=== PATIENT | female | born 1935 | race Caucasian/White ===

== ENCOUNTER 2016-12-12 08:23 | Emergency (ER) | payer MEDICARE, OTHER ==
[2016-12-12] MEDS ORDERED: Acetaminophen/HYDROcodone 325-5 MG Tab PO ONE (10:48)
[2016-12-12 11:31] VITALS: BP 133/61
--- NOTE | 2016-12-13 11:42 | CR ---
INDICATION: Fall, pain. LEFT SHOULDER, COMPLETE: Three views of the left shoulder revealed a comminuted fracture of the proximal shaft through the surgical neck area of the humerus with medial offset of the distal fracture fragment of approximately 1 cm and medial angulation of mild to moderate degree at the fracture site. The fracture appears to have spared the joint surface. Joint effusion is suggested with some widening of the glenohumeral joint space. No other acute bone or joint abnormality was suggested. IMPRESSION: Comminuted fracture of the proximal humerus with moderate deformity. MTDD
--- NOTE | 2016-12-13 15:18 | ER ---
DATE SEEN: 12/12/2016 TIME SEEN: The patient was seen at 0945 hours. HISTORY: This 81-year-old, slipped and fell, and in fact she went out to measure the rain this morning and she slipped on the back and fell onto her left shoulder, has pain in left shoulder. No history of loss of consciousness. Did not hit her head. No history of seizure disorder. PAST MEDICAL HISTORY: Significant for diabetes, hypertension, coronary artery disease, 3-vessel CABG in 2003, no history of TIA. She is status post appendectomy, hysterectomy, and cholecystectomy. She has a who has had a stroke, it is difficult to get around so she is here with her friend. Significant dyslipidemia. MEDICATIONS: 1. Metformin 1000 mg b.i.d. 2. Glyburide 5 mg daily. 3. Atorvastatin 20 mg daily. 4. Carvedilol 6.25 mg daily. ALLERGIES: None. REVIEW OF SYSTEMS: Negative except as noted above. PHYSICAL EXAMINATION: VITAL SIGNS: Blood pressure 129/81, heart rate 59 and regular, respiratory rate 18, oxygen saturation 98%, and temperature is 36.3 degrees centigrade, 69.4 kg, BMI 28.28 kg/m2. CONSTITUTIONAL: The patient is very pleasant, well dressed woman who has mild discomfort, but does not complain of pain presently. HEENT: PERRLA intact. Pharynx without abnormality. NECK: Supple. No bruits in neck. LUNGS: Clear to auscultation without rales, rhonchi, or wheezes. No chest wall pain. HEART: S1, S2. No irregular rate and rhythm. ABDOMEN: Soft. No hepatosplenomegaly, guarding, or abdominal discomfort. EXTREMITIES: Without edema. NEURO: Deep tendon reflexes upper and lower extremities symmetrical and 1+. Left shoulder, no crepitus with gentle motion of the shoulder, but she has mild discomfort. She did not keep me from moving her arm, I had moved it 15 degrees, and it caused discomfort. There is mild swelling. Deltoid nerve sensory intact (C5) on palpation. No compromise in pronation, supination, or flexion or extension of the wrist or compromised hand sensation or radial and ulnar pulses. X-ray reveals an oblique surgical neck, partially displaced, impacted left humerus. PLAN: 1. The patient had a sling and swath placed, shoulder immobilizer. She will have a tablet of Vicodin. 2. She had a prescription filled for Vicodin 16 tablets 1 q.4-6 hours p.r.n. pain. 3. Use ice packs. 4. We will call to her clinic to make arrangements for orthopedic followup. No lifting with left arm. DIAGNOSES: 1. Left impacted angulated surgical neck fracture of the humerus. 2. Hypertension. 3. Diabetes. 4. Coronary artery disease. 5. Three-vessel CABG. 6. Dyslipidemia. 7. Status post appendectomy, hysterectomy, and cholecystectomy. /[id number] PALOMA/ANNEMARIE
== END 2016-12-12 11:02 | disposition home or self-care (01) ==
LOC: FB.ED 08:23
DX: S42.212A Unspecified displaced fracture of surgical neck of left humerus, initial encounter for closed fracture (principal); I10 Essential (primary) hypertension; E11.9 Type 2 diabetes mellitus without complications; I25.10 Atherosclerotic heart disease of native coronary artery without angina pectoris; E78.5 Hyperlipidemia, unspecified; Z95.1 Presence of aortocoronary bypass graft; Z90.49 Acquired absence of other specified parts of digestive tract; Z90.710 Acquired absence of both cervix and uterus; W19.XXXA Unspecified fall, initial encounter
CPT/HCPCS: 73030; 99283; A9270

== ENCOUNTER 2017-01-01 01:49 | Emergency (ER) | payer MEDICARE, OTHER ==
[2017-01-01] MEDS ORDERED: Nitroglycerin 0.4 MG Tab.SL SL ONE ×2 (01:55→02:25)
[2017-01-01] MEDS ORDERED: Sodium Chloride 0.9% 1,000 ML IV SCH (02:00)
--- NOTE | 2017-01-01 02:15 | EDM.PDOC ---
ED HPI GENERAL MEDICAL PROBLEM - General Stated Complaint: CHEST PAIN Time Seen by Provider: 01/01/17 01:49 Source of Information: Reports: Patient History Limitations: Reports: No Limitations - History of Present Illness INITIAL COMMENTS - FREE TEXT/NARRATIVE: c/o CP onset CP [employer], awoke from sleep, lower SSCP, SBP 60 by EMS, then 88, then 105, BP 112/69 with HR 71 and PO 100% here, after NTG SL x 1 here BP 99/59 EKG by EMS with dec'd ST chest leads with greatest 2.5 mm in V2, III and F with nl ST, dec'd ST I, II, AVL up to 1.5 mm in II after NTG x [address] depression on EKG (1.5 mm at V2 and II) and CP has resolved, pt now with pain in her back only h/o CABGx3 12y ago, states no CV since, did see cardiology in f/u once 3w after CABG but not since L humerus fx 3w ago has had sob x 3-4d, been sleeping in a chair d/t her humeral fx, did sleep in her bed last night widened mediastinum noted on portable CxR altho it was rotated, some pul edema noted as well with inc'd d-dimer and back pain, a chest CTA was ordered with no evidence of dissection she became pain free after NTG x 2, did show bifascular block Right Middle Chest Pain Score (Numeric/FACES): 9 - Related Data Allergies Allergy/AdvReac Type Severity Reaction Status Date / Time No Known Allergies Allergy Verified 01/01/17 04:38 Home Meds: Home Meds Carvedilol [Coreg] 6.25 mg PO DAILY 04/18/16 [History] atorvaSTATin [Lipitor] 20 mg PO DAILY 04/18/16 [History] glyBURIDE [Glyburide] 5 mg PO DAILY 04/18/16 [History] metFORMIN HCl [Metformin HCl] 1,000 mg PO BID 04/18/16 [History] Hydrocodone/Acetaminophen [Hydrocodon-Acetaminophen 5-325] 1 each PO Q4HR PRN # 16 tablet 12/12/16 [Rx] Aspirin [Ecotrin] 325 mg PO DAILY 01/01/17 [History] Cranberry 400 mg PO DAILY 01/01/17 [History] Ergocalciferol (Vitamin D2) [Vitamin D2] 2,000 unit PO DAILY 01/01/17 [History] Lutein/Minerals/Vit A,C & E [Ocuvite] 1 tab PO DAILY 01/01/17 [History] Past Medical History Cardiovascular History: Reports: Bypass, High Cholesterol, Hypertension, [place] Respiratory History: Reports: Asthma Gastrointestinal History: Reports: Cholelithiasis 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: Endocrine/Metabolic History: Reports: Diabetes, Type II Other Endocrine/Metabolic History: borderline diabetic, is diet controlled - Infectious Disease History Infectious Disease History: Reports: Chicken Pox, Measles, Mononucleosis, Mumps , Shingles - Past Surgical History HEENT Surgical History: Reports: Cataract Surgery Other HEENT Surgeries/Procedures: bilat cataract Cardiovascular Surgical History: Reports: Coronary Artery Bypass, Other (See Below) Other Cardiovascular Surgeries/Procedures: 3 vessel bypass GI Surgical History: Reports: Appendectomy, Cholecystectomy, Colonoscopy, EGD Social & Family History - Family History Family Medical History: Noncontributory - Tobacco Use Smoking Status *Q: Former Smoker Used Tobacco, but Quit: Yes Month Tobacco Last Used: 1966 Second Hand Smoke Exposure: No - Caffeine Use Caffeine Use: Reports: Coffee, Soda - Recreational Drug Use Recreational Drug Use: No ED ROS GENERAL - Review of Systems Review Of Systems: See Below Constitutional: Reports: No Symptoms HEENT: Reports: No Symptoms Respiratory: Reports: No Symptoms Cardiovascular: Reports: Chest Pain Endocrine: Reports: No Symptoms GI/Abdominal: Reports: No Symptoms : Reports: No Symptoms Musculoskeletal: Reports: Back Pain Skin: Reports: No Symptoms Neurological: Reports: No Symptoms Psychiatric: Reports: No Symptoms Hematologic/Lymphatic: Reports: No Symptoms Immunologic: Reports: No Symptoms ED EXAM, GENERAL - Physical Exam Exam: See Below Exam Limited By: No Limitations General Appearance: Alert, WD/WN, Mild Distress Ears: Normal External Exam, Hearing Grossly Normal Nose: Normal Inspection, Normal Mucosa, No Blood Throat/Mouth: Normal Inspection, Normal Lips, Normal Voice, No Airway Compromise Head: Atraumatic, Normocephalic Neck: Normal Inspection, Supple, Non-Tender Respiratory/Chest: No Respiratory Distress, Lungs Clear, Normal Breath Sounds, No Accessory Muscle Use, Chest Non-Tender, Other (no epigastric or sternal or rib tender) Cardiovascular: Regular Rate, Rhythm, No Edema, No Gallop, No JVD, No Rub, Other (2/6 CORDELL at LSB) Peripheral Pulses: 0: Carotid (R) GI/Abdominal: Soft, Non-Tender, No Organomegaly, No Distention, No Mass Back Exam: Normal Inspection, Full Range of Motion, NT Extremities: No Pedal Edema, Other (dec'd turgor UE b/l, no tenting, old ecchymosis LUE, holding LUE straight at side) Neurological: Alert, Oriented, CN II-XII Intact, Normal Cognition, No Motor/ Sensory Deficits Psychiatric: Normal Affect, Normal Mood Skin Exam: Warm, Dry, Intact, Normal Color, No Rash Lymphatic: No Adenopathy Course - Vital Signs Last Recorded V/S: Last Vital Signs Temp 36.3 C 01/01/17 04:04 Pulse 89 01/01/17 04:04 Resp 18 01/01/17 04:04 BP 105/59 L 01/01/17 04:04 Pulse Ox 100 01/01/17 04:12 - Orders/Labs/Meds Orders: Active Orders 24 hr Category Date Time Status Chest 1V Frontal [CR] Stat Exams 01/01/17 01:59 Taken Chest w Cont [CT] Stat Exams 01/01/17 03:06 Taken UA W/MICROSCOPIC [URIN] Stat Lab 01/01/17 01:59 Uncollected Sodium Chloride 0.9% [Normal Saline] 1,000 ml Med 01/01/17 02:00 Active IV ASDIRECTED Medication Orders Sodium Chloride (Normal Saline) 1,000 mls @ 999 mls/hr IV ASDIRECTED WILTON Last Admin: 01/01/17 02:00 Dose: 999 mls/hr Labs: Laboratory Tests 01/01/17 01/01/17 01/01/17 Range/Units 02:40 02:40 02:40 WBC 9.7 (4.5-12.0) X10-3/uL RBC 3.46 (3.23-5.20) x10(6)uL Hgb 10.4 L (11.5-15.5) g/dL Hct 32.3 (30.0-51.3) % MCV 93.4 (80-96) fL MCH 30.2 (27.7-33.6) pg MCHC 32.3 (32.2-35.4) g/dL RDW 13.6 (11.5-15.5) % Plt Count 336 (125-369) X10(3)uL MPV 8.4 (7.4-10.4) fL Neut % (Auto) 75.1 (46-82) % Lymph % (Auto) 14.9 (13-37) % [place] % (Auto) 6.0 (4-12) % Eos % (Auto) 4 (1.0-5.0) % Baso % (Auto) 1 (0-2) % Neut # (Auto) 7.4 (1.6-8.3) # Lymph # (Auto) 1.4 (0.6-5.0) # [place] # (Auto) 0.6 (0.0-1.3) # Eos # (Auto) 0.3 (0.0-0.8) # Baso # (Auto) 0.0 (0.0-0.2) # PT 10.9 (8.7-11.1) INR 1.08 (0.89-1.13) D-Dimer, Quantitative 2670 H (100-400) ng/mL Sodium (135-145) mmol/L Potassium (3.5-5.3) mmol/L Chloride (100-110) mmol/L Carbon Dioxide (23-29) mmol/L BUN (8-23) mg/dL Creatinine (0.6-1.3) mg/dL Est Cr Clr Drug Dosing mL/min Estimated GFR (MDRD) (>60) BUN/Creatinine Ratio (9-20) Glucose (80-116) mg/dL Calcium (8.6-10.2) mg/dL Total Bilirubin (0.1-1.3) mg/dL AST (5-27) IU/L ALT (14-26) IU/L Alkaline Phosphatase (56-112) IU/L Troponin I (0.02-0.06) NG/ML C-Reactive Protein (0.0-1.0) mg/dL NT-Pro-B Natriuret Pep (5-450) pg/mL Total Protein (6.0-8.0) g/dL Albumin (3.2-4.6) g/dL Globulin g/dL Albumin/Globulin Ratio 01/01/17 01/01/17 Range/Units 02:40 02:40 WBC (4.5-12.0) X10-3/uL RBC (3.23-5.20) x10(6)uL Hgb (11.5-15.5) g/dL Hct (30.0-51.3) % MCV (80-96) fL MCH (27.7-33.6) pg MCHC (32.2-35.4) g/dL RDW (11.5-15.5) % Plt Count (125-369) X10(3)uL MPV (7.4-10.4) fL Neut % (Auto) (46-82) % Lymph % (Auto) (13-37) % [place] % (Auto) (4-12) % Eos % (Auto) (1.0-5.0) % Baso % (Auto) (0-2) % Neut # (Auto) (1.6-8.3) # Lymph # (Auto) (0.6-5.0) # [place] # (Auto) (0.0-1.3) # Eos # (Auto) (0.0-0.8) # Baso # (Auto) (0.0-0.2) # PT (8.7-11.1) INR (0.89-1.13) D-Dimer, Quantitative (100-400) ng/mL Sodium 136 (135-145) mmol/L Potassium 3.8 (3.5-5.3) mmol/L Chloride 100 (100-110) mmol/L Carbon Dioxide 24 (23-29) mmol/L BUN 25 H (8-23) mg/dL Creatinine 1.3 (0.6-1.3) mg/dL Est Cr Clr Drug Dosing 26.84 mL/min Estimated GFR (MDRD) 39 L (>60) BUN/Creatinine Ratio 19.2 (9-20) Glucose 218 H (80-116) mg/dL Calcium 8.7 (8.6-10.2) mg/dL Total Bilirubin 0.9 (0.1-1.3) mg/dL AST 27 D (5-27) IU/L ALT 15 D (14-26) IU/L Alkaline Phosphatase 94 (56-112) IU/L Troponin I 0.77 H* (0.02-0.06) NG/ML C-Reactive Protein < 0.5 (0.0-1.0) mg/dL NT-Pro-B Natriuret Pep 1889 H (5-450) pg/mL Total Protein 6.5 (6.0-8.0) g/dL Albumin 3.2 (3.2-4.6) g/dL Globulin 3.3 g/dL Albumin/Globulin Ratio 1.0 Meds: Medications Generic Name Dose Route Start Last Admin Trade Name Freq PRN Reason Stop Dose Admin Sodium Chloride 1,000 mls @ 999 mls/hr 01/01/17 02:00 01/01/17 02:00 Normal Saline IV 999 mls/hr ASDIRECTED WILTON Administration Discontinued Medications Generic Name Dose Route Start Last Admin Trade Name Freq PRN Reason Stop Dose Admin Aspirin 324 mg 01/01/17 04:19 01/01/17 01:51 Aspirin PO 01/01/17 04:20 324 mg ONETIME ONE Administration Iopamidol 75 ml 01/01/17 03:20 01/01/17 03:51 Isovue-370 (76%) IV 01/01/17 03:21 60 ml ASDIRECTED ONE Administration Nitroglycerin 0.4 mg 01/01/17 01:55 01/01/17 02:00 Nitrostat SL 01/01/17 01:56 0.4 mg ONETIME ONE Administration Nitroglycerin 0.4 mg 01/01/17 02:25 01/01/17 02:25 Nitrostat SL 01/01/17 02:26 0.4 mg ONETIME ONE Administration Departure - Departure Time of Disposition: 05:45 Disposition: DC/Tfer to Acute Hospital 02 Reason for Transfer *Q: Other Condition: Good Clinical Impression: Acute coronary syndrome, CHF exacerbation, Elevated d-dimer, Elevated brain natriuretic peptide (BNP) level, Pulmonary edema cardiac cause, Mild dehydration , Bifascicular block, ST segment depression, Elevated troponin, Acute on chronic renal failure, Left humeral fracture Referrals: Yony Santoro MD [Primary Care Provider] - - My Orders Last 24 Hours: My Active Orders 01/01/17 01:59 Chest 1V Frontal [CR] Stat UA W/MICROSCOPIC [URIN] Stat 01/01/17 02:00 Sodium Chloride 0.9% [Normal Saline] 1,000 ml IV ASDIRECTED 01/01/17 03:06 Chest w Cont [CT] Stat - Assessment/Plan Last 24 Hours: My Active Orders 01/01/17 01:59 Chest 1V Frontal [CR] Stat UA W/MICROSCOPIC [URIN] Stat 01/01/17 02:00 Sodium Chloride 0.9% [Normal Saline] 1,000 ml IV ASDIRECTED 01/01/17 03:06 Chest w Cont [CT] Stat
[2017-01-01] MEDS ORDERED: Iopamidol 755 Mg/ML 75 ML Bottle IV ONE (03:20)
[2017-01-01] MEDS ORDERED: Aspirin 81 MG Tab.Chew PO ONE (04:19)
[2017-01-01] MEDS ORDERED: Heparin Sodium 5,000 Units/ML Vial IVPUSH ONE (05:36)
[2017-01-01] MEDS ORDERED: Clopidogrel 75 MG Tab PO ONE (05:36)
[2017-01-01] MEDS ORDERED: Heparin Sodium/D5W 25,000 UNITS/500 ML BAG IV SCH (05:45)
[2017-01-01 08:18] VITALS: BP 99/58
--- NOTE | 2017-01-03 12:08 | CR ---
INDICATION: Chest pain. CHEST: An AP upright view of the chest 01/01/2017, compared with 04/18/2016 and 04/12/2009, revealed the heart to be enlarged similar to the last examination. Pulmonary vasculature appears slightly prominent with prominent interstitial markings, raising question of a mild degree of CHF and interstitial lung edema. Minimal bilateral pleural effusions are difficult to exclude with minimally blunted costophrenic angle seen. Evidence of previous median sternotomy is again noted. Overlying EKG leads are noted. It is difficult to entirely exclude minimal patchy pneumonia in the mid to lower lung field on the right and left lung base medially. IMPRESSION: 1. ASHD, cardiomegaly, possible minimal or early CHF with mild interstitial lung edema - correlate clinically. 2. Cannot exclude the possibility of patchy pneumonia superimposed on areas of heavy markings - interstitial changes in the mid to lower lung field on the right and medial left lung base. 3. Somewhat hyperaerated appearing lung, slightly flattened diaphragm leaves, raising question of COPD - correlate clinically. MTDD
== END 2017-01-01 08:35 ==
LOC: FB.ED 01:49
DX: I24.9 Acute ischemic heart disease, unspecified (principal); I45.2 Bifascicular block; I13.0 Hypertensive heart and chronic kidney disease with heart failure and stage 1 through stage 4 chronic kidney disease, or unspecified chronic kidney disease; E11.22 Type 2 diabetes mellitus with diabetic chronic kidney disease; N18.9 Chronic kidney disease, unspecified; I50.9 Heart failure, unspecified; S42.212A Unspecified displaced fracture of surgical neck of left humerus, initial encounter for closed fracture; E86.0 Dehydration; R79.89 Other specified abnormal findings of blood chemistry; R94.31 Abnormal electrocardiogram [ECG] [EKG]; E78.00 Pure hypercholesterolemia, unspecified; Z95.1 Presence of aortocoronary bypass graft; Z79.82 Long term (current) use of aspirin; Z79.84 Long term (current) use of oral hypoglycemic drugs; Z79.899 Other long term (current) drug therapy; X58.XXXA Exposure to other specified factors, initial encounter
CPT/HCPCS: 36415; 71010; 71260; 80053; 81001; 83880; 84484; 85025; 85379; 85610; 86140; 87086; 87088; 87186; 93005; 96360; 99285; A9270; J1644; J7040; Q9967

== ENCOUNTER 2017-01-09 15:01 | Emergency (ER) | payer MEDICARE, OTHER ==
[2017-01-09 15:42] VITALS: BP 119/73
--- NOTE | 2017-01-09 16:38 | EDM.PDOC ---
ED HPI GENERAL MEDICAL PROBLEM - General Chief Complaint: General Stated Complaint: FLUID BUILD UP Time Seen by Provider: 01/09/17 15:25 Source of Information: Reports: Patient History Limitations: Reports: No Limitations - History of Present Illness INITIAL COMMENTS - FREE TEXT/NARRATIVE: c/o inc'd ankle swelling pt in ED 01/01 with CP, went to [place] with EKG changes in anterior/inferior distribution with troponin 0.77 previously with small [place] and CABG x 3 12y ago, told she now had a blockage of one of the 3 grafts but it was not safe to do angioplasty pt d/c'ed home 6d ago, on furosemide 20 mg daily as a new med, wt has dec'd 169 lbs to 152 lbs in ED now pt c/o inc'd ankle swell in past 24h, had not previously had ankle swell, feels sob, no cough, PO 100% on RA, no dyspnea and lungs CTA here today pt with BNP 1889 8d ago, now over 33k trop 0.77 8d ago, now 2.13 will d/w [place] cardiology Dr Cadena who was senior vice president and chief information officer and had seen pt in [place], troponin 112 there, then peaked 123, then dec'd 76 and 36 so trop 2.13 today is downward trend Dr Cadena recommended starting the lisinopril will continue the current dose of furosemide as she has a clear downward trend in wt and has nl BUN/creat 18/1.2 (was 25/1.3 8d ago) pt has apt with Dr Payton in 2d and Dr Cadena in 1w - Related Data Allergies Allergy/AdvReac Type Severity Reaction Status Date / Time No Known Allergies Allergy Verified 01/09/17 15:17 Home Meds: Home Meds Carvedilol [Coreg] 6.25 mg PO DAILY 04/18/16 [History] glyBURIDE [Glyburide] 5 mg PO BID 04/18/16 [History] metFORMIN HCl [Metformin HCl] 1,000 mg PO BID 04/18/16 [History] Aspirin [Ecotrin] 325 mg PO DAILY 01/01/17 [History] Clopidogrel [Plavix] 75 mg PO DAILY 01/09/17 [History] Furosemide 20 mg PO DAILY 01/09/17 [History] Lisinopril 2.5 mg PO DAILY 01/09/17 [History] atorvaSTATin [Lipitor] 80 mg PO BEDTIME 01/09/17 [History] Past Medical History Cardiovascular History: Reports: Bypass, High Cholesterol, Hypertension, [place], Stents Respiratory History: Reports: Asthma Gastrointestinal History: Reports: Cholelithiasis Genitourinary History: Reports: Other (See Below) Other Genitourinary History: has trouible getting things going 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: Musculoskeletal History: Reports: Other (See Below) Other Musculoskeletal History: non displaced fracture L upper arm Endocrine/Metabolic History: Reports: Diabetes, Type II Other Endocrine/Metabolic History: borderline diabetic, is diet controlled - Infectious Disease History Infectious Disease History: Reports: Chicken Pox, Measles, Mononucleosis, Mumps , Shingles - Past Surgical History HEENT Surgical History: Reports: Cataract Surgery Other HEENT Surgeries/Procedures: bilat cataract Cardiovascular Surgical History: Reports: Coronary Artery Bypass, Other (See Below) Other Cardiovascular Surgeries/Procedures: 3 vessel bypass GI Surgical History: Reports: Appendectomy, Cholecystectomy, Colonoscopy, EGD Female Surgical History: Reports: None Social & Family History - Family History Family Medical History: Noncontributory - Tobacco Use Smoking Status *Q: Never Smoker Used Tobacco, but Quit: Yes Month Tobacco Last Used: 1966 Second Hand Smoke Exposure: No - Caffeine Use Caffeine Use: Reports: None Other Caffeine Use: 1 cup a day - Recreational Drug Use Recreational Drug Use: No ED ROS GENERAL - Review of Systems Review Of Systems: See Below Constitutional: Reports: No Symptoms HEENT: Reports: No Symptoms Respiratory: Reports: Shortness of Breath Cardiovascular: Reports: No Symptoms, Other (ankle swell). Denies: Chest Pain Endocrine: Reports: No Symptoms GI/Abdominal: Reports: No Symptoms : Reports: No Symptoms Musculoskeletal: Reports: No Symptoms Skin: Reports: No Symptoms Neurological: Reports: No Symptoms Psychiatric: Reports: No Symptoms Hematologic/Lymphatic: Reports: No Symptoms Immunologic: Reports: No Symptoms ED EXAM, GENERAL - Physical Exam Exam: See Below Exam Limited By: No Limitations General Appearance: Alert, WD/WN, No Apparent Distress, Other (pleasant, nonill , sitting in chair, moves easily) Nose: Normal Inspection, Normal Mucosa, No Blood Throat/Mouth: Normal Inspection, Normal Voice, No Airway Compromise Head: Atraumatic, Normocephalic Neck: Normal Inspection, Supple, Non-Tender, Full Range of Motion Respiratory/Chest: No Respiratory Distress, Lungs Clear, Normal Breath Sounds, No Accessory Muscle Use, Chest Non-Tender, Other (no cough, no dyspnea, talks 10 -word sentences) Cardiovascular: Regular Rate, Rhythm, No Gallop, No JVD, No Rub, Other (2/6 CORDELL at LSB, 2+ edema to knees b/l, trace edema of thighs b/l, nl turgor UE b/l) Back Exam: Normal Inspection, Full Range of Motion, NT Extremities: Normal Inspection, Normal Range of Motion, Non-Tender, Normal Capillary Refill Neurological: Alert, Oriented, CN II-XII Intact, Normal Cognition, No Motor/ Sensory Deficits Psychiatric: Normal Affect, Normal Mood Skin Exam: Warm, Dry, Intact, Normal Color, No Rash Lymphatic: No Adenopathy Course - Vital Signs Last Recorded V/S: Last Vital Signs Temp 36.7 C 01/09/17 15:05 Pulse 82 01/09/17 15:05 Resp 16 01/09/17 15:05 BP 119/73 01/09/17 15:05 Pulse Ox 100 01/09/17 15:05 - Orders/Labs/Meds Orders: Active Orders 24 hr Category Date Time Status EKG Documentation Completion [RC] ASDIRECTED Care 01/09/17 16:38 Active BASIC METABOLIC PANEL,BMP [CHEM] Stat Lab 01/09/17 15:50 Results PRO B-TYPE NATRIUR PEPT,BNPPRO [CHEM] Stat Lab 01/09/17 15:50 Results URINALYSIS W/MICROSCOPIC [UA W/MICROSCOPIC] [URIN] Stat Lab 01/09/17 16:06 Uncollected EKG 12 Lead [EK] Routine Ther 01/09/17 16:38 Ordered Labs: Laboratory Tests 01/09/17 01/09/17 01/09/17 Range/Units 15:50 15:50 15:50 WBC 6.9 (4.5-12.0) X10-3/uL RBC 3.37 (3.23-5.20) x10(6)uL Hgb 10.4 L (11.5-15.5) g/dL Hct 31.8 (30.0-51.3) % MCV 94.3 (80-96) fL MCH 30.9 (27.7-33.6) pg MCHC 32.7 (32.2-35.4) g/dL RDW 14.6 (11.5-15.5) % Plt Count 250 (125-369) X10(3)uL MPV 8.8 (7.4-10.4) fL Neut % (Auto) 71.0 (46-82) % Lymph % (Auto) 17.9 (13-37) % [place] % (Auto) 7.9 (4-12) % Eos % (Auto) 3 (1.0-5.0) % Baso % (Auto) 1 (0-2) % Neut # (Auto) 5.0 (1.6-8.3) # Lymph # (Auto) 1.2 (0.6-5.0) # [place] # (Auto) 0.5 (0.0-1.3) # Eos # (Auto) 0.2 (0.0-0.8) # Baso # (Auto) 0.0 (0.0-0.2) # Sodium 137 (135-145) mmol/L Potassium 3.6 (3.5-5.3) mmol/L Chloride 101 (100-110) mmol/L Carbon Dioxide 25 (23-29) mmol/L BUN 18 (8-23) mg/dL Creatinine 1.2 (0.6-1.3) mg/dL Est Cr Clr Drug Dosing 29.08 mL/min Estimated GFR (MDRD) 43 L (>60) BUN/Creatinine Ratio 15.0 (9-20) Glucose 133 H D (80-116) mg/dL Calcium 8.9 (8.6-10.2) mg/dL Troponin I 2.13 H* (0.02-0.06) NG/ML Departure - Departure Time of Disposition: 17:27 Disposition: Home, Self-Care 01 Condition: Good Clinical Impression: CHF, Congestive heart failure, Peripheral edema - Discharge Information Referrals: Yony Santoro MD [Primary Care Provider] - Forms: ED Department Discharge Additional Instructions: Continue your current meds. Add lisinopril 2.5 mg daily. May take the first dose today. Check blood pressure before taking the lisinopril and do not take it if the systolic blood pressure is less than 110, which is unlikely. Record weight and blood pressure daily. You have additional fluid weight to loss, likely down to 145 pounds, and perhaps down to 142 pounds. There is no hurry to lose the weight as you will continue to use weight as your heart recovers. Your heart is doing well. Your troponin peaked at 123, down to 2 today (normal is less than 0.05). Your kidneys are doing well, improved from [address] Clement in 2 days as scheduled. Return to ED if you are feeling worse or develop additional symptoms. Call your Physician or Return to Emergency Department if: * Your condition worsens in any way. * You develop fever greater than 100.4. * You have vomitting that does not stop with medications. * You have pain that is not controlled with medications. - My Orders Last 24 Hours: My Active Orders 01/09/17 15:50 BASIC METABOLIC PANEL,BMP [CHEM] Stat PRO B-TYPE NATRIUR PEPT,BNPPRO [CHEM] Stat 01/09/17 16:06 URINALYSIS W/MICROSCOPIC [UA W/MICROSCOPIC] [URIN] Stat 01/09/17 16:38 EKG Documentation Completion [RC] ASDIRECTED EKG 12 Lead [EK] Routine - Assessment/Plan Last 24 Hours: My Active Orders 01/09/17 15:50 BASIC METABOLIC PANEL,BMP [CHEM] Stat PRO B-TYPE NATRIUR PEPT,BNPPRO [CHEM] Stat 01/09/17 16:06 URINALYSIS W/MICROSCOPIC [UA W/MICROSCOPIC] [URIN] Stat 01/09/17 16:38 EKG Documentation Completion [RC] ASDIRECTED EKG 12 Lead [EK] Routine
== END 2017-01-09 17:45 | disposition home or self-care (01) ==
LOC: FB.ED 15:01
DX: I11.0 Hypertensive heart disease with heart failure (principal); I50.9 Heart failure, unspecified; E11.9 Type 2 diabetes mellitus without complications; E78.00 Pure hypercholesterolemia, unspecified; J45.909 Unspecified asthma, uncomplicated; Z79.84 Long term (current) use of oral hypoglycemic drugs; Z79.82 Long term (current) use of aspirin
CPT/HCPCS: 36415; 80048; 83880; 84484; 85025; 93005; 99284

== ENCOUNTER 2019-07-13 12:12 | Emergency (ER) | payer MEDICARE, OTHER ==
[2019-07-13 12:20] VITALS: BP 91/46; PULSE 54
[2019-07-13] MEDS: Sodium Chloride 0.9% 10 ML Syringe FLUSH PRN ×2 (12:43→12:55)
[2019-07-13] MEDS ORDERED: Ondansetron 4 MG/2 ML SDV IVPUSH ONE (12:52)
[2019-07-13] MEDS ORDERED: Sodium Chloride 0.9% 500 ML IV ONE (13:06)
--- NOTE | 2019-07-13 13:09 | EDM.PDOC ---
ED HPI GENERAL MEDICAL PROBLEM - General Chief Complaint: General Stated Complaint: NEAR SYNCOPE Time Seen by Provider: 07/13/19 13:09 Source of Information: Reports: Patient, EMS, EMS Notes Reviewed History Limitations: Reports: No Limitations - History of Present Illness INITIAL COMMENTS - FREE TEXT/NARRATIVE: Presents with a near syncopal episode since 1030 this morning while standing at the sink. She felt lightheaded prior to this, denies chest pain or palpitations. There was no injury. PMHx includes CAD, 3v CABG, HTN, and T2DM. Patient has been more SOB than usual and has noticed more swelling in her feel recently. Patient complains of intermittent nausea and diarrhea x several months. Onset: Today Right Shoulder Pain Score (Numeric/FACES): 5 - Related Data Allergies Allergy/AdvReac Type Severity Reaction Status Date / Time No Known Allergies Allergy Verified 07/13/19 12:15 Home Meds: Home Meds carvediloL [Coreg] 6.25 mg PO DAILY 04/18/16 [History] glyBURIDE [Glyburide] 5 mg PO BID 04/18/16 [History] metFORMIN HCl [Metformin HCl] 1,000 mg PO BID 04/18/16 [History] Aspirin [Ecotrin EC] 325 mg PO DAILY 01/01/17 [History] Furosemide 20 mg PO DAILY 01/09/17 [History] atorvaSTATin [Lipitor] 80 mg PO BEDTIME 01/09/17 [History] Potassium Chloride [K-Tab ER] 20 meq PO DAILY 07/13/19 [History] Past Medical History Cardiovascular History: Reports: Bypass, High Cholesterol, Hypertension, [place], Stents Respiratory History: Reports: Asthma Gastrointestinal History: Reports: Cholelithiasis Genitourinary History: Reports: Other (See Below) Other Genitourinary History: has trouble "getting things going" [employer] History: Reports: Musculoskeletal History: Reports: Arthritis, Other (See Below) Other Musculoskeletal History: non displaced fracture L upper arm Endocrine/Metabolic History: Reports: Diabetes, Type II Other Endocrine/Metabolic History: borderline diabetic, is diet controlled - Infectious Disease History Infectious Disease History: Reports: Chicken Pox, Measles, Mononucleosis, Mumps , Shingles - Past Surgical History HEENT Surgical History: Reports: Cataract Surgery Other HEENT Surgeries/Procedures: bilat cataract Cardiovascular Surgical History: Reports: Coronary Artery Bypass, Other (See Below) Other Cardiovascular Surgeries/Procedures: 3 vessel bypass GI Surgical History: Reports: Appendectomy, Cholecystectomy, Colonoscopy, EGD Female Surgical History: Reports: None Social & Family History - Family History Family Medical History: Noncontributory - Tobacco Use Smoking Status *Q: Never Smoker - Caffeine Use Caffeine Use: Reports: Soda Other Caffeine Use: 1 cup a day - Recreational Drug Use Recreational Drug Use: No ED ROS GENERAL - Review of Systems Review Of Systems: Comprehensive ROS is negative, except as noted in HPI. Musculoskeletal: Reports: Back Pain (right upper) ED EXAM, GENERAL - Physical Exam Exam: See Below Exam Limited By: No Limitations General Appearance: Alert, WD/WN, No Apparent Distress Nose: Normal Inspection Throat/Mouth: No Airway Compromise Head: Atraumatic, Normocephalic Neck: Full Range of Motion Respiratory/Chest: No Respiratory Distress, Decreased Breath Sounds Cardiovascular: Regular Rate, Rhythm, No Murmur GI/Abdominal: Normal Bowel Sounds, Soft, Non-Tender, No Distention Back Exam: Full Range of Motion Extremities: Normal Range of Motion, Pedal Edema Neurological: Alert, Normal Cognition, No Motor/Sensory Deficits Psychiatric: Normal Affect, Normal Mood Skin Exam: Warm, Dry, Intact EKG INTERPRETATION EKG Date: 07/13/19 Time: 13:45 Rhythm: NSR Rate (Beats/Min): 43 [place]: Normal P-Wave: Present QRS: Other (trigeminy) ST-T: Other (inverted T wave lateral leads (no change 04/18/16)) QT: Normal Course - Vital Signs Last Recorded V/S: Last Vital Signs Temp 36.3 C 07/13/19 12:19 Pulse 54 L 07/13/19 12:19 Resp 14 07/13/19 12:19 BP 91/46 L 07/13/19 12:19 Pulse Ox 87 L 07/13/19 14:17 - Orders/Labs/Meds Orders: Active Orders 24 hr Category Date Time Status EKG Documentation Completion [RC] ASDIRECTED Care 07/13/19 12:25 Active CXR [Chest 1V Frontal] [CR] Stat Exams 07/13/19 12:49 Taken CULTURE BLOOD [BC] Urgent Lab 07/13/19 13:36 Received CULTURE BLOOD [BC] Urgent Lab 07/13/19 13:41 Received CULTURE URINE [RM] Stat Lab 07/13/19 14:43 Ordered Sodium Chloride 0.9% [Normal Saline] 1,000 ml Med 07/13/19 14:30 Active IV ASDIRECTED Sodium Chloride 0.9% [Saline Flush] Med 07/13/19 12:26 Active 10 ml FLUSH ASDIRECTED PRN Blood Culture x2 Reflex Set [OM.PC] Urgent Oth 07/13/19 13:12 Ordered Saline Lock Insert [OM.PC] Routine Oth 07/13/19 12:26 Ordered EKG 12 Lead [EK] Stat Ther 07/13/19 12:24 Ordered Medication Orders Sodium Chloride (Normal Saline) 1,000 mls @ 100 mls/hr IV ASDIRECTED WILTON Sodium Chloride (Saline Flush) 10 ml FLUSH ASDIRECTED PRN PRN Reason: Keep Vein Open Last Admin: 07/13/19 12:55 Dose: 10 ml Admin: 07/13/19 12:43 Dose: 10 ml Labs: Laboratory Tests 07/13/19 07/13/19 07/13/19 Range/Units 13:36 13:36 13:36 WBC 9.1 (4.5-12.0) X10-3/uL RBC 4.02 (3.23-5.20) x10(6)uL Hgb 12.0 (11.5-15.5) g/dL Hct 37.4 (30.0-51.3) % MCV 93.2 (80-96) fL MCH 29.8 (27.7-33.6) pg MCHC 31.9 L (32.2-35.4) g/dL RDW 16.5 H (11.5-15.5) % Plt Count 191 (125-369) X10(3)uL MPV 9.4 (7.4-10.4) fL Add Manual Diff Yes Neutrophils % (Manual) 81 (46-82) % Band Neutrophils % 3 (0-6) % Lymphocytes % (Manual) 9 L (13-37) % Monocytes % (Manual) 6 (4-12) % Eosinophils % (Manual) 1 (0-5) % Anisocytosis Few PT 13.4 H (9.0-11.1) sec INR 1.26 H (1.00-1.24) APTT 25.3 (24.4-33.2) SECONDS D-Dimer, Quantitative 1.30 H (0.0-0.59) mg/LFEU Sodium 139 (135-145) mmol/L Potassium 6.2 H* (3.5-5.3) mmol/L Chloride 106 (100-110) mmol/L Carbon Dioxide 22 (21-32) mmol/L BUN 44 H (7-18) mg/dL Creatinine 2.3 H* (0.55-1.02) mg/dL Est Cr Clr Drug Dosing 14.40 mL/min Estimated GFR (MDRD) 20 L (>60) BUN/Creatinine Ratio 19.1 (9-20) Glucose 188 H (80-116) mg/dL Lactic Acid (0.4-2.0) mmol/L Calcium 9.0 (8.6-10.2) mg/dL Magnesium (1.8-2.5) mg/dL Total Bilirubin 1.0 (0.1-1.3) mg/dL AST 20 (5-25) IU/L ALT 16 (12-36) U/L Alkaline Phosphatase 172 H (56-112) IU/L Troponin I (4.0-60.3) pg/mL NT-Pro-B Natriuret Pep (<=450) pg/mL Total Protein 7.7 (6.0-8.0) g/dL Albumin 3.3 (3.2-4.6) g/dL Globulin 4.4 g/dL Albumin/Globulin Ratio 0.8 Urine Color (YELLOW) Urine Appearance (CLEAR) Urine pH (5.0-6.5) Ur Specific [place] (1.010-1.025) Urine Protein (NEGATIVE) mg/dL Urine Glucose (UA) (NORMAL) mg/dL Urine Ketones (NEGATIVE) mg/dL Urine Occult Blood (NEGATIVE) Urine Nitrite (NEGATIVE) Urine Bilirubin (NEGATIVE) Urine Urobilinogen (NEGATIVE) mg/dL Ur Leukocyte Esterase (NEGATIVE) U Hyaline Cast (Auto) (NS) Urine RBC (0-5) Urine WBC (0-5) Ur Squamous Epith Cells (NS,R,O) Urine Bacteria (NS) 07/13/19 07/13/19 07/13/19 Range/Units 13:36 13:36 13:36 WBC (4.5-12.0) X10-3/uL RBC (3.23-5.20) x10(6)uL Hgb (11.5-15.5) g/dL Hct (30.0-51.3) % MCV (80-96) fL MCH (27.7-33.6) pg MCHC (32.2-35.4) g/dL RDW (11.5-15.5) % Plt Count (125-369) X10(3)uL MPV (7.4-10.4) fL Add Manual Diff Neutrophils % (Manual) (46-82) % Band Neutrophils % (0-6) % Lymphocytes % (Manual) (13-37) % Monocytes % (Manual) (4-12) % Eosinophils % (Manual) (0-5) % Anisocytosis PT (9.0-11.1) sec INR (1.00-1.24) APTT (24.4-33.2) SECONDS D-Dimer, Quantitative (0.0-0.59) mg/LFEU Sodium (135-145) mmol/L Potassium (3.5-5.3) mmol/L Chloride (100-110) mmol/L Carbon Dioxide (21-32) mmol/L BUN (7-18) mg/dL Creatinine (0.55-1.02) mg/dL Est Cr Clr Drug Dosing mL/min Estimated GFR (MDRD) (>60) BUN/Creatinine Ratio (9-20) Glucose (80-116) mg/dL Lactic Acid 3.5 H* (0.4-2.0) mmol/L Calcium (8.6-10.2) mg/dL Magnesium 1.9 (1.8-2.5) mg/dL Total Bilirubin (0.1-1.3) mg/dL AST (5-25) IU/L ALT (12-36) U/L Alkaline Phosphatase (56-112) IU/L Troponin I 63.6 H* (4.0-60.3) pg/mL NT-Pro-B Natriuret Pep H* (<=450) pg/mL Total Protein (6.0-8.0) g/dL Albumin (3.2-4.6) g/dL Globulin g/dL Albumin/Globulin Ratio Urine Color (YELLOW) Urine Appearance (CLEAR) Urine pH (5.0-6.5) Ur Specific [place] (1.010-1.025) Urine Protein (NEGATIVE) mg/dL Urine Glucose (UA) (NORMAL) mg/dL Urine Ketones (NEGATIVE) mg/dL Urine Occult Blood (NEGATIVE) Urine Nitrite (NEGATIVE) Urine Bilirubin (NEGATIVE) Urine Urobilinogen (NEGATIVE) mg/dL Ur Leukocyte Esterase (NEGATIVE) U Hyaline Cast (Auto) (NS) Urine RBC (0-5) Urine WBC (0-5) Ur Squamous Epith Cells (NS,R,O) Urine Bacteria (NS) 07/13/19 Range/Units 14:09 WBC (4.5-12.0) X10-3/uL RBC (3.23-5.20) x10(6)uL Hgb (11.5-15.5) g/dL Hct (30.0-51.3) % MCV (80-96) fL MCH (27.7-33.6) pg MCHC (32.2-35.4) g/dL RDW (11.5-15.5) % Plt Count (125-369) X10(3)uL MPV (7.4-10.4) fL Add Manual Diff Neutrophils % (Manual) (46-82) % Band Neutrophils % (0-6) % Lymphocytes % (Manual) (13-37) % Monocytes % (Manual) (4-12) % Eosinophils % (Manual) (0-5) % Anisocytosis PT (9.0-11.1) sec INR (1.00-1.24) APTT (24.4-33.2) SECONDS D-Dimer, Quantitative (0.0-0.59) mg/LFEU Sodium (135-145) mmol/L Potassium (3.5-5.3) mmol/L Chloride (100-110) mmol/L Carbon Dioxide (21-32) mmol/L BUN (7-18) mg/dL Creatinine (0.55-1.02) mg/dL Est Cr Clr Drug Dosing mL/min Estimated GFR (MDRD) (>60) BUN/Creatinine Ratio (9-20) Glucose (80-116) mg/dL Lactic Acid (0.4-2.0) mmol/L Calcium (8.6-10.2) mg/dL Magnesium (1.8-2.5) mg/dL Total Bilirubin (0.1-1.3) mg/dL AST (5-25) IU/L ALT (12-36) U/L Alkaline Phosphatase (56-112) IU/L Troponin I (4.0-60.3) pg/mL NT-Pro-B Natriuret Pep (<=450) pg/mL Total Protein (6.0-8.0) g/dL Albumin (3.2-4.6) g/dL Globulin g/dL Albumin/Globulin Ratio Urine Color Yellow (YELLOW) Urine Appearance Slightly cloudy (CLEAR) Urine pH 5.0 (5.0-6.5) Ur Specific [place] 1.015 (1.010-1.025) Urine Protein Negative (NEGATIVE) mg/dL Urine Glucose (UA) Normal (NORMAL) mg/dL Urine Ketones Negative (NEGATIVE) mg/dL Urine Occult Blood Negative (NEGATIVE) Urine Nitrite Positive H (NEGATIVE) Urine Bilirubin Small H (NEGATIVE) Urine Urobilinogen Normal (NEGATIVE) mg/dL Ur Leukocyte Esterase Large H (NEGATIVE) U Hyaline Cast (Auto) Few H (NS) Urine RBC 0-5 (0-5) Urine WBC 30-40 H (0-5) Ur Squamous Epith Cells Rare (NS,R,O) Urine Bacteria Many H (NS) Meds: Medications Generic Name Dose Route Start Last Admin Trade Name Freq PRN Reason Stop Dose Admin Sodium Chloride 1,000 mls @ 100 mls/hr 07/13/19 14:30 Normal Saline IV ASDIRECTED WILTON Sodium Chloride 10 ml 07/13/19 12:26 07/13/19 12:55 Saline Flush FLUSH 10 ml ASDIRECTED PRN Administration Keep Vein Open Discontinued Medications Generic Name Dose Route Start Last Admin Trade Name Freq PRN Reason Stop Dose Admin Calcium Gluconate 1 gm 07/13/19 14:00 Calcium Gluconate IVPUSH 07/13/19 14:01 ONETIME ONE Ceftriaxone Sodium 2 gm 07/13/19 14:23 Rocephin IVPUSH 07/13/19 14:24 ONETIME ONE Dextrose/Water 50 ml 07/13/19 14:04 07/13/19 14:50 Dextrose 50% In Water IVPUSH 07/13/19 14:05 50 ml ONETIME ONE Administration Sodium Chloride 500 mls @ 500 mls/hr 07/13/19 13:06 07/13/19 13:08 Normal Saline IV 07/13/19 14:05 500 mls/hr .BOLUS ONE Administration Insulin Human Regular 5 unit 07/13/19 14:04 Humulin R IV 07/13/19 14:05 ONETIME ONE Ondansetron HCl 4 mg 07/13/19 12:52 07/13/19 12:54 Zofran IVPUSH 07/13/19 12:53 4 mg ONETIME ONE Administration Sodium Bicarbonate 50 meq 07/13/19 14:03 Sodium Bicarbonate 8.4% IVPUSH 07/13/19 14:04 ONETIME ONE Sodium Polystyrene Sulfonate 30 gm 07/13/19 14:03 Kayexalate PO 07/13/19 14:04 ONETIME ONE - Radiology Interpretation Free Text/Narrative:: CXR: Large right pleural effusion. (ED provider interpretation) - Re-Assessments/Exams Free Text/Narrative Re-Assessment/Exam: 07/13/19 14:55 Dr. Grant @[facility]. Patient wishes to remain DNR/DNI, but is agreeable to dialysis if needed. Departure - Departure Time of Disposition: 14:56 Disposition: DC/Tfer to [facility] 02 Clinical Impression: Near syncope, Hyperkalemia, MARGARITA (acute kidney injury), Lactic acid blood increased, Pleural effusion on right, UTI, Urinary tract infectious disease, Elevated troponin I level, Hypoxemia CHF exacerbation Qualifiers: Heart failure type: unspecified Qualified Code(s): I50.9 - Heart failure, unspecified Hypotension Qualifiers: Hypotension type: unspecified hypotension type Qualified Code(s): I95.9 - Hypotension, unspecified - Discharge Information Referrals: Yony Santoro MD [Primary Care Provider] - Forms: ED Department Discharge Sepsis Event Note - Evaluation Sepsis Screening Result: No Definite Risk - Focused Exam Vital Signs: Vital Signs Temp Pulse Resp BP Pulse Ox 07/13/19 14:17 87 L 07/13/19 12:19 36.3 C 54 L 14 91/46 L 95 Date Exam was Performed: 07/13/19 Time Exam was Performed: 14:54 - My Orders Last 24 Hours: My Active Orders 07/13/19 12:24 EKG 12 Lead [EK] Stat 07/13/19 12:25 EKG Documentation Completion [RC] ASDIRECTED 07/13/19 12:26 Sodium Chloride 0.9% [Saline Flush] 10 ml FLUSH ASDIRECTED PRN Saline Lock Insert [OM.PC] Routine 07/13/19 12:49 CXR [Chest 1V Frontal] [CR] Stat 07/13/19 13:12 Blood Culture x2 Reflex Set [OM.PC] Urgent 07/13/19 13:36 CULTURE BLOOD [BC] Urgent 07/13/19 13:41 CULTURE BLOOD [BC] Urgent 07/13/19 14:30 Sodium Chloride 0.9% [Normal Saline] 1,000 ml IV ASDIRECTED 07/13/19 14:43 CULTURE URINE [RM] Stat - Assessment/Plan Last 24 Hours: My Active Orders 07/13/19 12:24 EKG 12 Lead [EK] Stat 07/13/19 12:25 EKG Documentation Completion [RC] ASDIRECTED 07/13/19 12:26 Sodium Chloride 0.9% [Saline Flush] 10 ml FLUSH ASDIRECTED PRN Saline Lock Insert [OM.PC] Routine 07/13/19 12:49 CXR [Chest 1V Frontal] [CR] Stat 07/13/19 13:12 Blood Culture x2 Reflex Set [OM.PC] Urgent 07/13/19 13:36 CULTURE BLOOD [BC] Urgent 07/13/19 13:41 CULTURE BLOOD [BC] Urgent 07/13/19 14:30 Sodium Chloride 0.9% [Normal Saline] 1,000 ml IV ASDIRECTED 07/13/19 14:43 CULTURE URINE [RM] Stat
[2019-07-13] MEDS ORDERED: Calcium Gluconate 10% 1 GM/10 ML SDV IVPUSH ONE (14:00)
[2019-07-13] MEDS ORDERED: Sodium Polystyrene Sulfonate 15 GM/60 ML Susp 60 ML Bot PO ONE (14:03)
[2019-07-13] MEDS ORDERED: Sodium Bicarbonate 8.4% 50 MEQ/50 ML Syringe IVPUSH ONE (14:03)
[2019-07-13] MEDS ORDERED: 50% Dextrose in Water 50 ML Syringe IVPUSH ONE (14:04)
[2019-07-13] MEDS ORDERED: Insulin Regular, Human 100 Units/ML 3 ML Vial IV ONE (14:04)
[2019-07-13] MEDS ORDERED: cefTRIAXone 2 GM Vial IVPUSH ONE (14:23)
[2019-07-13] MEDS ORDERED: Sodium Chloride 0.9% 1,000 ML IV SCH (14:30)
== END 2019-07-13 16:49 ==
LOC: FB.ED 12:12
DX: N17.9 Acute kidney failure, unspecified (principal); E87.5 Hyperkalemia; I11.0 Hypertensive heart disease with heart failure; I50.9 Heart failure, unspecified; R55 Syncope and collapse; R74.0 Nonspecific elevation of levels of transaminase and lactic acid dehydrogenase [LDH]; N39.0 Urinary tract infection, site not specified; J45.909 Unspecified asthma, uncomplicated; M19.90 Unspecified osteoarthritis, unspecified site; E11.9 Type 2 diabetes mellitus without complications; R79.89 Other specified abnormal findings of blood chemistry; J90 Pleural effusion, not elsewhere classified; E78.00 Pure hypercholesterolemia, unspecified; I95.9 Hypotension, unspecified; I25.2 Old myocardial infarction; Z79.82 Long term (current) use of aspirin; Z79.84 Long term (current) use of oral hypoglycemic drugs; Z79.899 Other long term (current) drug therapy
CPT/HCPCS: 36415; 71045; 80053; 81001; 83605; 83735; 83880; 84484; 85025; 85379; 85610; 85730; 87040; 87086; 87088; 87186; 93005; 93010; 96361; 96374; 96375; 99285; A9270; J0610; J0696; J1815; J2405; J7030; J7040